=== PATIENT | male | born 1930 | race Caucasian/White ===

== ENCOUNTER → 2017-08-02 | Outpatient (CLI) | payer MEDICARE | END | disposition home or self-care (01) | LOC: PCVCCLINIC 13:38 | DX: I25.10 Atherosclerotic heart disease of native coronary artery without angina pectoris (principal); I10 Essential (primary) hypertension; E78.5 Hyperlipidemia, unspecified; Z87.891 Personal history of nicotine dependence | CPT/HCPCS: 80061 ==

== ENCOUNTER → 2017-09-06 | Outpatient (CLI) | payer MEDICARE | END | disposition home or self-care (01) | LOC: PCVCCLINIC 13:12 | DX: I25.10 Atherosclerotic heart disease of native coronary artery without angina pectoris (principal); I10 Essential (primary) hypertension; R00.1 Bradycardia, unspecified; R42 Dizziness and giddiness; E78.5 Hyperlipidemia, unspecified; Z87.891 Personal history of nicotine dependence; Z79.899 Other long term (current) drug therapy; Z79.82 Long term (current) use of aspirin | CPT/HCPCS: G0463 ==

== ENCOUNTER → 2017-11-01 | Outpatient (CLI) | payer MEDICARE ==
--- NOTE | 2017-11-02 07:44 | PCVCIMAG ---
APPROVED REPORT Study performed: 11/01/2017 15:21:17 EXAM: Comprehensive 2D, Doppler, and color-flow Echocardiogram Patient Location: Echo lab Status: routine BSA: 1.96 HR: 49 bpmBP: 140/70 mmHg Rhythm: NSR Other Information Study Quality: Good Indications CAD Hypertension/HDD CABG, Pre op surgery clearance for breast tumor. 2D Dimensions IVSd: 11.54 (7-11mm)LVOT Diam: 24.96 (18-24mm) LVDd: 51.68 mm PWd: 9.44 (7-11mm)Ascending Ao: 35.77 (22-36mm) LVDs: 36.40 (25-40mm) Left Atrium: 46.00 (27-40mm) Aortic Root: 29.86 mm LV Single Plane 4CH: 57.13 % Volumes Left Atrial Volume (Systole) Single Plane 4CH: 44.13 mLSingle Plane 2CH: 41.35 mL LA ESV Index: 25.00 mL/m2 Aortic Valve AoV Peak Jameson.: 1.57 m/s AO Peak Gr.: 9.87 mmHgLVOT Max P.90 mmHg LVOT Max V: 0.85 m/s CHASE Vmax: 2.65 cm2 AI Vmax: 3.94 m/s AI [place]: 2.48 m/s2 AI PHT: 460.20 ms Mitral Valve E/A Ratio: 0.8 MV Decel. Time: 280.75 ms MV E Max Jameson.: 0.61 m/s MV A Jameson.: 0.76 m/s MV PHT: 81.42 ms TDI E/Lateral E': 0.09E/Medial E': 0.12 Medial E' Jameson.: 5.00 m/s Lateral E' Jamse[place].: 7.00 m/s Pulmonary Valve PV Peak Jameson.: 0.88 m/sPV Peak Gr.: 3.07 mmHg Pulmonary Vein P Vein S: 0.61 m/sP Vein A: 0.28 m/s P Vein D: 0.51 m/sP Vein A Dur.: 93.4 msec P Vein S/D Ratio: 1.20 Tricuspid Valve TR Peak Jameson.: 2.56 m/s TR Peak Gr.: 26.31 mmHg Left Ventricle The left ventricle is normal size. There is normal LV segmental wall motion. There is normal left ventricular wall thickness. Left ventricular systolic function is normal. The left ventricular ejection fraction is within the normal range. LVEF is 60%. The left ventricular diastolic function is normal. Right Ventricle The right ventricle is normal size. The right ventricular systolic function is normal. Atria The left atrium size is normal. The right atrium size is normal. Aortic Valve The aortic valve is normal in structure. Mild aortic regurgitation. There is no aortic valvular stenosis. Mitral Valve Mild mitral annular calcification. There is no mitral valve regurgitation noted. No evidence of mitral valve stenosis. Tricuspid Valve The tricuspid valve is normal in structure. Mild tricuspid regurgitation. Pulmonary artery pressure is 34mmHg. Pulmonic Valve The pulmonary valve is normal in structure. There is no pulmonic valvular regurgitation. Great Vessels The aortic root is normal in size. IVC is normal in size and collapses >50% with inspiration. Pericardium There is no pericardial effusion. <Conclusion> The left ventricle is normal size. LVEF is 60%. The aortic valve is normal in structure. Mild aortic regurgitation. Mild mitral annular calcification. The tricuspid valve is normal in structure. Mild tricuspid regurgitation. Pulmonary artery pressure is 34mmHg. The pulmonary valve is normal in structure. There is no pericardial effusion.
== END | disposition home or self-care (01) ==
LOC: PCVCIMAG 14:30
PROVIDERS: ATTEND Internal Medicine
DX: Z01.818 Encounter for other preprocedural examination (principal); I08.2 Rheumatic disorders of both aortic and tricuspid valves
CPT/HCPCS: 93306

== ENCOUNTER → 2018-08-29 | Outpatient (CLI) | payer MEDICARE | END | disposition home or self-care (01) | LOC: PCVCCLINIC 14:00 | PROVIDERS: ATTEND Internal Medicine Cardiovascular Disease | DX: R42 Dizziness and giddiness (principal); I25.10 Atherosclerotic heart disease of native coronary artery without angina pectoris; I10 Essential (primary) hypertension; I95.1 Orthostatic hypotension; E78.00 Pure hypercholesterolemia, unspecified; E78.5 Hyperlipidemia, unspecified; Z87.891 Personal history of nicotine dependence; Z79.82 Long term (current) use of aspirin; Z79.899 Other long term (current) drug therapy; Z72.89 Other problems related to lifestyle | CPT/HCPCS: 36415; 80061; 93005; G0463 ==